=== PATIENT | male | born 1980 | race Caucasian/White ===

== ENCOUNTER 2017-12-07 11:46 | Emergency (ER) | payer SELFPAY ==
[~2017-12-07] VITALS: Ht 170.2 cm; Wt 80.9 kg
[~2017-12-07 11:46] MED LIST: PREDNISONE20 MG PO; PROAIR HFA0.09 MG/AC IH; ZITHROMAX Z PA250 MG PO
[2017-12-07 11:49] VITALS: BP 135/90; TEMP 98
[2017-12-07] MEDS ORDERED: PREDNISONE20 MG PO (13:29)
[2017-12-07] MEDS ORDERED: FLEXERIL 1010 MG/TAB PO (13:30)
[2017-12-07 13:39] VITALS: PULSE 68
== END 2017-12-07 13:41 | disposition home or self-care (01) ==
LOC: COL.ER 11:46
DX: M46.1 Sacroiliitis, not elsewhere classified (principal); J45.909 Unspecified asthma, uncomplicated; X50.3XXA Overexertion from repetitive movements, initial encounter
CPT/HCPCS: J2360

== ENCOUNTER 2022-09-03 04:42 | Emergency (ER) | payer SELFPAY ==
[~2022-09-03] VITALS: Ht 170.2 cm; Wt 86.4 kg
[~2022-09-03 04:42] MED LIST changes: +FLEXERIL 1010 MG/TAB PO
[2022-09-03 04:46] VITALS: TEMP 97.8
[2022-09-03 05:23] LABS: BASO # 0.1 K/mm3 (0.0-0.2); BASO % 1.1 % (0.0-2.0); EOS # 0.3 K/mm3 (0.0-0.7); GRAN # 4.8 K/mm3 (1.4-6.5); GRAN % 66.2 % (42.2-75.2); HEMATOCRIT 38.8 % (42.0-52.0); HEMOGLOBIN 11.7 g/dl (13.5-18.0); LYMPH # 1.3 K/mm3 (1.2-3.4); LYMPH % 18.6 % (20.0-51.0); MEAN CELL VOLUME 70 fl (80.0-100.0); MEAN CORPUSCULAR HEMOGLOBIN 21 pg (27-31); MEAN CORPUSCULAR HGB CONC 30 g/dl (33.0-37.0); MEAN PLATELET VOLUME 10.5 fl (7.4-10.4); MONO # 0.7 K/mm3 (0.1-0.6); PLATELET COUNT 336 K/mm3 (130-400); RED BLOOD COUNT 5.58 M/mm3 (4.20-5.60); REDCELL DISTRIBUTION WIDTH-CV 20.8 % (11.5-14.5)
[2022-09-03 05:48] LABS: C-REACTIVE PROTEIN 0.62 mg/dL (0.00-0.50)
[2022-09-03 05:52] LABS: ALBUMIN 4.2 gm/dL (3.5-5.0); BILIRUBIN,TOTAL 0.4 mg/dL (0.2-1.2); CALCIUM 9.2 mg/dL (8.4-10.2); CREATININE, serum 0.69 mg/dL (0.72-1.25); POTASSIUM 3.8 mmol/L (3.5-4.5); TOTAL PROTEIN 7.6 gm/dL (6.2-8.1)
[2022-09-03] MEDS ORDERED: NAPROSYN500 MG PO (06:37)
[2022-09-03] MEDS ORDERED: AMOXICILLIN 8751 TAB PO (06:37)
[2022-09-03 06:56] VITALS: BP 138/86; PULSE 87
== END 2022-09-03 06:56 | disposition home or self-care (01) ==
LOC: COL.ER 04:42
PROVIDERS: Emergency Medicine
DX: J32.0 Chronic maxillary sinusitis (principal); Z20.822 Contact with and (suspected) exposure to COVID-19; Z28.310 Unvaccinated for COVID-19
CPT/HCPCS: J1885; J2550; J7030